=== PATIENT | male | born 1960 | race Caucasian/White ===

== ENCOUNTER 2024-01-18 19:10 | Emergency (ER) | payer MEDICAID, OTHER ==
[~2024-01-18] VITALS: Ht 165.1 cm; Wt 155.0 kg
[2024-01-18] MEDS ORDERED: HYDR-4798 PO (20:58)
[2024-01-18] MEDS ORDERED: IBUP-1455 PO (20:58)
[2024-01-18] MEDS: HYDROcodone-ACET 10/325MG TAB PO ONE (23:21)
[2024-01-18] MEDS: KETOROLAC TROMETH 60MG/2ML VIAL IM ONE (23:21)
[2024-01-18 23:29] VITALS: BP 155/70; PULSE 84; RESP 19; TEMP 97.9; O2SAT 97
== END 2024-01-18 23:47 | disposition home or self-care (01) ==
LOC: ER 19:10
DX: M47.816 Spondylosis without myelopathy or radiculopathy, lumbar region (principal); M54.42 Lumbago with sciatica, left side
CPT/HCPCS: 72100; 96372; 99283; J1885

== ENCOUNTER 2024-06-19 06:48 | Emergency (ER) | payer MEDICAID, OTHER ==
[~2024-06-19] VITALS: Ht 165.1 cm; Wt 159.0 kg
[~2024-06-19 06:48] MED LIST: HYDR-4798 PO; IBUP-1455 PO
--- NOTE | 2024-06-19 07:19 | ED.PDOC ---
SOB-HPI HPI Comments 64 y/o M, with PMHX of asthma, COPA, and MO presents to the ED for CC of shortness of breath. Per EMS, patient has been experiencing shortness of breath with associated cough and congestion since 0400 this morning (06/19/24). Patient comments on, having at home oxygen with daily breathing treatments; patient recently ran out of oxygen. Patient received x3 breathing treatments in route to ED, BS read at 176 and all VSS. Patient denies chest pain, fever, chills, body- aches, or fatigue. No other associated symptom's, modifiers, recent injuries or sick contacts at this time. Chief Complaint: Shortness of Breath Time Seen by MD: 07:05 Reviewed notes: Nurses Notes, Manager Of Production Notes, Medications, Allergies Information Source: Patient, Emergency Med Personnel Mode of Arrival: EMS Severity: Moderate Timing: Days Duration: Intermittent Context: At Rest PE Risk Factors: None History of: Asthma, COPD Prehospital treatment: Breathing Tx Modifying Factors: Nothing Associated Signs and Symptoms: Cough, Nasal Congestion Past Medical History PAST MEDICAL HISTORY: Asthma, COPD, MO Surgical History: Denies all surgeries Family History Family History: Reviewed,noncontributory to illness, No family hx of Cancer, No family hx of DM, No family hx of Heart zhou, No family hx of HTN, No family hx ofKidney zhou, No family hx of Liver zhou, No family hx of Lung zhou, No family hx of Stroke Social History Smoker: Non-Smoker Alcohol: Denies ETOH Use Drugs: Denies Drug Use Lives In: Home Constitutional: denies: chills, diaphoresis, fatigue, fever, malaise, sweats, weakness, others EENTM: reports: nose congestion; denies: blurred vision, double vision, ear bleeding, ear discharge, ear drainage, ear pain, ear ringing, eye pain, eye redness, hearing loss, mouth pain, mouth swelling, nasal discharge, nose bleeding, nose pain, photophobia, tearing, throat pain, throat swelling, voice changes, others Respiratory: reports: cough, shortness of breath; denies: hemoptysis, orthopnea, SOB at rest, SOB with excertion, stridor, wheezing, others Cardiovascular: denies: chest pain, dizzy spells, diaphoresis, Dyspnea on exertion, edema, irregular heart beat, left arm pain, lightheadedness, palpitations, PND, syncope, others Gastrointestinal: denies: abdomen distended, abdominal pain, blood streaked bowels, constipated, diarrhea, dysphagia, difficulty swallowing, hematemesis, melena, nausea, poor appetite, poor fluid intake, rectal bleeding, rectal pain, vomiting, others Genitourinary: denies: burning, dysuria, flank pain, frequency, hematuria, incontinence, penile discharge, penile sore, pain, testicle pain, testicle swelling, urgency, others Neurological: denies: dizziness, fainting, headache, left sided numbness, left sided weakness, numbness, paresthesia, pre-existing deficit, right sided numbness, right sided weakness, seizure, speech problems, tingling, tremors, weakness, others Musculoskeletal: denies: back pain, gout, joint pain, joint swelling, muscle pain, muscle stiffness, neck pain, others Integumetry: denies: bruises, change in color, change in hair/nails, dryness, laceration, lesions, lumps, rash, wounds, others Allergic/Immunocompromised: denies: Difficulty Healing, Frequent Infections, Hives, Itching, others Hematologic/Lymphatic: denies: anemia, blood clots, easy bleeding, easy bruising, swollen glands, others Endocrine: denies: excessive hunger, excessive sweating, excessive thirst, excessive urination, flushing, intolerance to cold, intolerance to heat, unexp lained weight gain, unexplained weight loss, others Psychiatric: denies: anxiety, bipolar disorder, depression, hopeless, panic disorder, schizophrenia, sleepless, suicidal, others All Other Systems: Reviewed and Negative Physical Exam General Appearance: Moderate Distress HEENT: Normal ENT Inspection, Pharynx Normal, TMs Normal Neck: Full Range of Motion, Non-Tender, Normal, Normal Inspection Respiratory: Accessory Muscle Use, Respiratory Distress, Other (Coarse breath sounds) Cardiovascular: Tachycardia Breast Exam: Deferred Gastrointestinal: No Organomegaly, Non Tender, No Pulsatile Mass, Normal Bowel Sounds, Soft Genitalia: Deferred Pelvic: Deferred Rectal: Deferred Extremities: Normal range of motion, Pedal edema Musculoskeletal : Apperance: Normal Neurologic: Alert, No Motor Deficits, No Sensory Deficits Cerebellar Function: NOT DONE Reflexes: NOT DONE Skin: Normal Color Peripheral Pulses: 3+ Radial (R), 3+ Radial (L) Lymphatic: No Adenopathy Was a procedure done? Was a procedure done?: No Differential Dx Differential Diagnosis: Anxiety, Asthma, Bronchitis, CHF, COPD, Pneumonia, Sinusitis, Pharyngitis, URI X-Ray, Labs, Meds, VS Vital Signs Date Time Temp Pulse Resp B/P (MAP) Pulse Ox O2 Delivery O2 Flow Rate FiO2 06/19/24 07:44 92 18 100 Nasal Cannula* 2 06/19/24 07:42 98.2 91 18 147/63 (91) 100 98.2 06/19/24 07:35 22 91 Nasal Cannula* 2 06/19/24 06:55 24 95 Nasal Cannula* 2 06/19/24 06:55 98.2 110 24 137/56 (83) 95 06/19/24 06:51 105 Lab Test 06/19/24 07:35 Range/Units White Blood Count 11.3 H 4.4-10.8 10^3/uL Red Blood Count 4.66 4.5-5.90 10^6/uL Hemoglobin 12.3 L 13.5-17.5 g/dL Hematocrit 37.9 L 41.0-53.0 % Mean Corpuscular Volume 81.3 80.0-100.0 fL Mean Corpuscular Hemoglobin 26.4 L 28.0-32.0 pg Mean Corpuscular Hemoglobin Concent 32.5 32.0-36.0 g/dL Red Cell Distribution Width 16.1 H 11.8-14.3 % Platelet Count 293 140-450 10^3/uL Mean Platelet Volume 7.2 6.9-10.8 fL Neutrophils (%) (Auto) 65.1 37.0-80.0 % Lymphocytes (%) (Auto) 13.4 10.0-50.0 % Monocytes (%) (Auto) 12.5 H 0.0-12.0 % Eosinophils (%) (Auto) 8.4 H 0.0-7.0 % Basophils (%) (Auto) 0.6 0.0-2.0 % Neutrophils # (Auto) 7.3 1.6-8.6 10 ^3/uL Lymphocytes # (Auto) 1.5 0.4-5.4 10 ^3/uL Monocytes # (Auto) 1.4 H 0-1.3 10 ^3/uL Eosinophils # (Auto) 0.9 H 0-0.8 10 ^3/uL Basophils # (Auto) 0.1 0-0.2 10 ^3/uL Nucleated Red Blood Cells 0.0 % Sodium Level 139 136-145 mmol/L Potassium Level 3.4 L 3.5-5.1 mmol/L Chloride Level 104 98-107 mmol/L Carbon Dioxide Level 27 20-31 mmol/L Anion Gap 8 5-15 Blood Urea Nitrogen 8 L 9-23 mg/dL Creatinine 0.67 L 0.700-1.30 mg/dL Glomerular Filtration Rate Calc 104 >90 mL/min BUN/Creatinine Ratio 11.9 10.0-20.0 Serum Glucose 158 H 74-106 mg/dL Calcium Level 8.9 8.7-10.4 mg/dL Troponin I High Sensitivity 41 </=54 ng/L Current Medications Medications (Trade) Dose Ordered Sig/Oesi Route Start Time Stop Time Status Last Admin Magnesium Sulfate/ Dextrose 100 ml @ 100 mls/hr ONCE ONCE IV 06/19/24 07:30 06/19/24 08:29 DC 06/19/24 07:52 Methylprednisolone Sodium Succinate (Solu Medrol) 125 mg ONCE ONCE IV 06/19/24 07:30 06/19/24 07:31 DC 06/19/24 07:52 Albuterol (Ventolin Medneb) 5 mg ONCE ONCE NEB 06/19/24 07:30 06/19/24 07:31 DC 06/19/24 07:35 Ipratropium [place] (Atrovent Medneb) 0.5 mg ONCE ONCE NEB 06/19/24 07:30 06/19/24 07:31 DC 06/19/24 07:35 Patient alert. Complaining of shortness a breath. Using accessory muscles. Placed on oxygen. He is on oxygen at home. Ran out of his oxygen. COPD exacerbation. Possible CHF. Establish intravenous access. Was given steroid. Was given breathing treatment. Cardiac marker within normal limits pain Tachycardia. Respiratory distress. Chest x-ray reviewed does show pneumonia. Pneumonitis. EKG reviewed does show tachycardia. Explained to the patient. Continue monitoring. Was given Rocephin. Was given azithromycin. Time of 1ST Reevaluation: 07:35 Reevaluation 1ST: Unchanged Patient Education/Counseling: Diagnosis, Treatment Family Education/Counseling: No Family Present Departure 1 Departure Time of Disposition: :57 Impression: Primary Impression: Acute respiratory failure Qualified Codes: J96.01 - Acute respiratory failure with hypoxia Additional Impressions: Pneumonitis Pneumonia Qualified Codes: J18.9 - Pneumonia, unspecified organism Disposition: ADMITTED INPATIENT Admit to: Med Surg Condition: Guarded Critical Care Note Critical Care Time?: Yes (90 min-critical care time only) Critical care comment: Placed on oxygen Stability Stability form required: No Heart Score Heart Score: Heart Score Response (Comments) Value History Slightly Suspicious 0 EKG Normal 0 Age 45-64 1 Risk Factors >3 or Hx ASHD 2 Troponin Normal limit 0 Total 3 I personally scribed for KAMILA CRISTOBAL MD ([email or web address]) on 06/19/24 at 07:19. Electronically submitted by Bernadette Wakefield ([email or web address]). KAMILA CRISTOBAL MD Jun 19, 2024 07:19
[2024-06-19] MEDS: IPRATROPIUM BROM 0.5 MG/2.5ML INH SOL NEB ONE (07:35)
[2024-06-19] MEDS: ALBUTEROL SULF 2.5 MG/0.5ML(0.5%) NEB SOLN NEB ONE (07:35)
[2024-06-19 07:42] VITALS: TEMP 98.2
[2024-06-19 07:44] VITALS: PULSE 92; RESP 18; O2SAT 100
--- NOTE | 2024-06-19 07:49 | DVH ---
CHEST RADIOGRAPH Indication: sob Technique: Single frontal view of the chest was obtained Comparison: XY CHEST PORTABLE on DOS: 08/03/23 FINDINGS: Lines and Tubes: None Lungs: Bibasilar opaciites. Pleura: No effusion. No pneumothorax. Cardiomediastinal contours: Unremarkable Bones: No acute osseous abnormality. IMPRESSION: Bibasilar opaciites.
[2024-06-19] MEDS: MAGNESIUM SULFATE 1GM/100ML 100 ML IV ONE (07:52)
[2024-06-19] MEDS: methylPREDNISolone SOD SUCC 125 MG/2 ML VL IV ONE (07:52)
[2024-06-19 07:54] LABS: Chloride 104 mmol/L (98-107); Sodium 139 mmol/L (136-145)
[2024-06-19 07:55] LABS: Anion Gap 8 (5-15); Carbon Dioxide 27 mmol/L (20-31); Hematocrit 37.9 % (41.0-53.0); Hemoglobin 12.3 g/dL (13.5-17.5); Lymphocytes # (auto) 1.5 10 ^3/uL (0.4-5.4); Monocytes # (auto) 1.4 10 ^3/uL (0-1.3); Red Cell Distribution Width 16.1 % (11.8-14.3)
[2024-06-19 07:56] LABS: Calcium 8.9 mg/dL (8.7-10.4)
[2024-06-19 07:57] LABS: Basophils # (auto) 0.1 10 ^3/uL (0-0.2); Basophils % (auto) 0.6 % (0.0-2.0); Eosinophils # (auto) 0.9 10 ^3/uL (0-0.8); Eosinophils % (auto) 8.4 % (0.0-7.0); Lymphocytes % (auto) 13.4 % (10.0-50.0); Mean Corpuscular Hemoglobin 26.4 pg (28.0-32.0); Mean Corpuscular Hgb Conc. 32.5 g/dL (32.0-36.0); Mean Corpuscular Volume 81.3 fL (80.0-100.0); Monocytes % (auto) 12.5 % (0.0-12.0); Neutrophils # (auto) 7.3 10 ^3/uL (1.6-8.6); Neutrophils % (auto) 65.1 % (37.0-80.0); Platelet Count (auto) 293 10^3/uL (140-450); Red Blood Cells 4.66 10^6/uL (4.5-5.90); White Blood Cell 11.3 10^3/uL (4.4-10.8)
[2024-06-19 07:59] LABS: Potassium 3.4 mmol/L (3.5-5.1)
[2024-06-19 08:01] LABS: BUN/Creatinine Ratio 11.9 (10.0-20.0); Blood Urea Nitrogen 8 mg/dL (9-23); Glucose 158 mg/dL (74-106)
[2024-06-19] MEDS: cefTRIAXone 1GM/50ML D5W 50 ML IV ONE (09:10)
[2024-06-19] MEDS: AZITHROMYCIN 500MG/ 250ML 250 ML IV ONE (09:15)
--- NOTE | 2024-06-19 10:41 | ECG ---
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
[2024-06-19 12:01] VITALS: BP 192/72; PULSE 88; RESP 20; O2SAT 89
== END 2024-06-19 12:59 | disposition left against medical advice (07) ==
LOC: ER 06:48 → EDBD 06:48 → ER 12:59
DX: J96.00 Acute respiratory failure, unspecified whether with hypoxia or hypercapnia (principal); J18.9 Pneumonia, unspecified organism; I25.2 Old myocardial infarction; J44.9 Chronic obstructive pulmonary disease, unspecified; Z99.81 Dependence on supplemental oxygen
CPT/HCPCS: 36415; 71045; 80048; 84484; 85025; 93005; 94640; 96365; 96366; 96367; 96368; 96375; 99291; J0456; J0696; J2919; J3475